=== PATIENT | male | born 1950 | race Caucasian/White ===

== ENCOUNTER 2025-04-26 19:58 | Emergency (ER) | payer MEDICARE, SELFPAY ==
[2025-04-26 20:01] VITALS: BP 178/104
--- NOTE | 2025-04-26 20:38 | ED.GENMED ---
History of Present Illness
<Dolores Marrero MD, Resident - Last Filed: 04/26/25 22:09>
General
Chief Complaint: Head Injury
Source: patient
Time Seen by Provider: 04/26/25 20:17
History of Present Illness
History of Present Illness:
Mr. Hall is a 74-year-old male with past medical history significant for essential hypertension, trigeminal neuralgia, depression, gout who is here for evaluation after he had a fall from a chair in the kitchen tile floor.
He hit his head, did not lose consciousness, denies any vomiting, nausea, syncope, lightheadedness, dizziness, bleeding from ear nose or throat. As per the family, they are concerned because he has been sleeping more than usual and that is what
prompted them to visit ER.
Past History
<Dolores Marrero MD, Resident - Last Filed: 04/26/25 22:09>
Past History
ED Past Medical History: CAD, HTN, Psychiatric (Depression) and Other (Trigeminal neuralgia)
Social History
Tobacco: Non-smoker
Alcohol: Occasional
Personal:
Living: with family
Phy Exam
<Dolores Marrero MD, Resident - Last Filed: 04/26/25 22:09>
General Physical Exam
General Presentation: well appearing and no apparent distress
General age: appears stated age
General Skin: warm and dry
General Habitus: normal
General Mental: alert
General Hydration: appears well hydrated
Cardiovascular Exam
Cardiovascular Exam: regular rate/rhythm, no edema, no gallop, no murmur and normal peripheral pulses
Pulmonary Exam
Pulmonary Exam: lungs clear, no respiratory distress, no rales and no crackles
Gastrointestinal Exam
Gastrointestinal Exam: normal bowel sounds, non tender and soft
Neurological Exam
Neurological Exam: alert, oriented x3, no motor deficits, no sensory deficits, speech normal, cerebellum intact and normal gait
Musculoskeletal Exam
Musculoskeletal Exam: full ROM
Skin Exam
Skin Exam: normal color
Course
<Dolores Marrero MD, Resident - Last Filed: 04/26/25 22:09>
Orders/Labs/Results
Orders:
Orders
04/26/25 20:33
CT Head W/o Iv Contrast Urgent
Comment:
Reason For Exam: History of fall
04/26/25 20:37
CT Cervical Spine W/o Iv Contr Urgent
Comment:
Reason For Exam: history of fall
Vital Signs
Initial and Last Documented VS:
Initial Vital Signs
Temp Pulse Resp BP Pulse Ox
98.2 F 74 16 178/104 98
04/26/25 20:01 04/26/25 20:01 04/26/25 20:01 04/26/25 20:01 04/26/25 20:01
Last Documented Vital Signs
Temp Pulse Resp BP Pulse Ox
98.2 F 82 16 146/82 95
04/26/25 20:01 04/26/25 21:41 04/26/25 21:41 04/26/25 21:41 04/26/25 21:41
<Carlos Rojo, DO - Last Filed: 04/26/25 21:48>
Orders/Labs/Results
Orders:
Orders
04/26/25 20:33
CT Head W/o Iv Contrast Urgent
Comment:
Reason For Exam: History of fall
04/26/25 20:37
CT Cervical Spine W/o Iv Contr Urgent
Comment:
Reason For Exam: history of fall
Vital Signs
Initial and Last Documented VS:
Initial Vital Signs
Temp Pulse Resp BP Pulse Ox
98.2 F 74 16 178/104 98
04/26/25 20:01 04/26/25 20:01 04/26/25 20:01 04/26/25 20:01 04/26/25 20:01
Last Documented Vital Signs
Temp Pulse Resp BP Pulse Ox
98.2 F 82 16 146/82 95
04/26/25 20:01 04/26/25 21:41 04/26/25 21:41 04/26/25 21:41 04/26/25 21:41
<Dolores Marrero MD, Resident - Last Filed: 04/26/25 22:09>
MDM/Problems Addressed
Differential Diagnosis Includes:
Stroke
Skull fracture/contusion
Cervical spine fracture
Intracranial hemorrhage
MDM/Problems Addressed:
Based on history, examination it seems less likely to be a head injury/intracranial hemorrhage. Given the age and family concerned that head CT and neck CT without IV contrast.
Head and neck CT done, no acute abnormalities
Reassured the patient and discharged home with instructions about symptoms to look out for in case of a head injury.
<Dolores Marrero MD, Resident - Last Filed: 04/26/25 22:09>
*Pulse Oximetry
SaO2: 98
Oxygen Mode of Delivery: Room air
Patient hypoxic: no
*Critical Care Note
Total Time (30-74mins, 75-104mins- exclusive of procedures): Not Applicable
ED Attending Note
<Dolores Marrero MD, Resident - Last Filed: 04/26/25 22:09>
-
Portions of this chart may have been created with voice recognition software.� Occasional wrong word or��sound alike� substitutions may have occurred due to the inherent limitations of voice recognition software.
<Carlos Rojo DO - Last Filed: 04/26/25 21:48>
ED Attending Note
Patient seen and examined by attending physician: Yes
I performed a history and physical exam of patient and discussed management with resident, I reviewed resident's note and agree with documented findings and plan of care.: Yes
ED Attending Note:
Seen with resident examined independently 74-year-old male on no blood thinners fell off a chair struck his head on laminated [place], no loss of consciousness minimal pain no neck pain no paresthesias no alcohol
Discharge Plan
Departure
Patient Disposition: Home (Routine Discharge)
Date of Disposition: 04/26/25
Time of Disposition: 21:50
Patient with high blood pressure during this ER visit?: No
Condition: Good
Discharge Problem:
Mild closed head injury
Instructions: Head Injury in Adults (DC)
Referrals:
GRETCHEN DILLARD [Other]
Interventions
Interventions:
*Risk Screen - Suicide Last Done: 04/26/25 20:01
*General Assessment Last Done: 04/26/25 21:42
*Neglect/Abuse Screening Last Done: 04/26/25 20:01
*ED- Fall Risk Assessment Last Done: 04/26/25 21:42
*ED COVID-19 Vaccine History Last Done: 04/26/25 21:42
*ED Influenza Vaccine History Last Done: 04/26/25 21:42
ED- Neurological Assessment Last Done: 04/26/25 21:42
ED-Skin Assessment Last Done: 04/26/25 21:42
Discharge Date and Time
Print Language: ROMANIAN
[2025-04-26 21:41] VITALS: BP 146/82
== END 2025-04-26 22:11 | disposition home or self-care (01) ==
LOC: EMR 19:58
PROVIDERS: EMERGENCY PHYSICIAN Emergency Medicine
DX: S09.90XA Unspecified injury of head, initial encounter (principal); W07.XXXA Fall from chair, initial encounter; I10 Essential (primary) hypertension; G50.0 Trigeminal neuralgia; F32.A Depression, unspecified; I25.10 Atherosclerotic heart disease of native coronary artery without angina pectoris; Z88.0 Allergy status to penicillin
CPT/HCPCS: 99284; 70450; 72125